=== PATIENT | male | born 1995 | race Caucasian/White ===

== ENCOUNTER 2018-02-27 22:26 | Emergency (ER) | payer SELFPAY, OTHER ==
[2018-02-28] MEDS: KETOROLAC 30 MG INJ IV (01:50)
[2018-02-28] MEDS: ACETAMINOPHEN 325 MG TAB PO (01:50)
[2018-02-28] MEDS: CLINDAMYCIN 600 MG/D5W (PMX) 50 ML IVPB (02:27)
== END 2018-02-28 03:19 | disposition home or self-care (01) ==
LOC: FTE 22:26
DX: K08.89 Other specified disorders of teeth and supporting structures (principal)
CPT/HCPCS: 96374; 96375; 99284-25